=== PATIENT | male | born 1960 | race African-American/Black ===

== ENCOUNTER 2016-12-11 11:46 | Emergency (ER) | payer MEDICAID ==
[~2016-12-11] VITALS: Ht 182.9 cm; Wt 91.0 kg
[~2016-12-11 11:46] MED LIST: ACET-1465 PO; AMLO10TA80 PO; CARV25TA47 PO; CINA30 PO; CLON0.3T PO; FOLI0.8T23 PO; MINO2.5T19 PO; SEVE800T PO
[2016-12-11 12:37] VITALS: BP 90/50
[2016-12-11 13:04] LABS: BASOPHILS % 1.2 % (0.0-2.0); HEMATOCRIT. 36.5 % (42.0-52.0); HEMOGLOBIN. 12.3 g/dL (14.0-18.0); LYMPHOCYTES % 22.7 % (20.0-50.0); MEAN CORPUSCULAR HEMOGLOBIN 30.5 pg (28.0-32.0); MEAN CORPUSCULAR VOLUME 90.6 fL (80.0-94.0); MONOCYTES % 12.3 % (2.0-8.0); NEUTROPHILS % 61.8 % (40.0-76.0); PLATELET 262 x1000/uL (130-400); RED BLOOD CELL COUNT 4.04 mill/uL (4.7-6.1); RED CELL DISTRIBUTION WIDTH 15.8 % (11.6-14.6)
[2016-12-11 13:08] LABS: INR 1.1; PARTIAL THROMBOPLASTIN TIME 30.8 sec (24.0-34.0); PROTHROMBIN TIME 11.6 sec
[2016-12-11 13:10] LABS: CARBON DIOXIDE 31 mEq/L (21-32); CHLORIDE 91 mEq/L (98-107)
[2016-12-11 13:15] LABS: PHOSPHORUS 2.5 mg/dL (2.5-4.9); TOTAL IRON BINDING CAPACITY 160 ug/dL (250-450); TROPONIN I < 0.02 ng/mL (0.00-0.04)
== END 2016-12-11 14:20 | disposition home or self-care (01) ==
LOC: ER 14:16 → CANBEDREQ 14:34
DX: I12.0 Hypertensive chronic kidney disease with stage 5 chronic kidney disease or end stage renal disease (principal); N18.6 End stage renal disease; D64.9 Anemia, unspecified; F12.10 Cannabis abuse, uncomplicated; Z99.2 Dependence on renal dialysis
CPT/HCPCS: 36415; 71010; 80053; 83540; 83550; 83690; 83735; 84100; 84484; 85025; 85044; 85610; 85730; 86850; 86900; 86901; 93005; 99285; Z7610; 86920

== ENCOUNTER 2018-01-08 10:01 | Emergency (ER) | payer MEDICAID ==
[~2018-01-08] VITALS: Ht 182.9 cm; Wt 96.0 kg
[~2018-01-08 10:01] MED LIST changes: +REN800 PO; -SEVE800T PO
[2018-01-08] MEDS ORDERED: LIDOCAINE HCL/PF 1% 10 MG/ML 5ML VIAL IJ ONE (10:45)
[2018-01-08] MEDS ORDERED: ACETAMINOPHEN 500MG TABLET PO ONE (10:45)
[2018-01-08] MEDS ORDERED: ONDANSETRON 4MG ODT PO ONE (11:45)
[2018-01-08] MEDS ORDERED: MORPHINE SULFATE 10 MG/ML CPJ IM ONE (11:45)
[2018-01-08 12:10] VITALS: BP 129/94
== END 2018-01-08 12:17 | disposition home or self-care (01) ==
LOC: ER 10:45
DX: K04.7 Periapical abscess without sinus (principal); N28.9 Disorder of kidney and ureter, unspecified; I10 Essential (primary) hypertension; F12.10 Cannabis abuse, uncomplicated
CPT/HCPCS: 41800; 96372; 99283; J2270; J3490; Q0162; Z7610

== ENCOUNTER 2018-04-25 09:08 | Emergency (ER) | payer MEDICAID ==
[~2018-04-25] VITALS: Ht 182.9 cm; Wt 97.0 kg
[2018-04-25 09:23] VITALS: BP 146/102
== END 2018-04-25 09:50 | disposition left against medical advice (07) ==
LOC: ER 09:08
DX: R68.89 Other general symptoms and signs (principal); Z53.21 Procedure and treatment not carried out due to patient leaving prior to being seen by health care provider

== ENCOUNTER 2018-10-28 09:17 | Emergency (ER) | payer MEDICAID ==
[~2018-10-28] VITALS: Ht 182.9 cm; Wt 100.0 kg
[2018-10-28 09:27] VITALS: BP 160/98
== END 2018-10-28 10:15 | disposition left against medical advice (07) ==
LOC: ER 09:17
DX: T82.41XA Breakdown (mechanical) of vascular dialysis catheter, initial encounter (principal); Y82.8 Other medical devices associated with adverse incidents; Y92.89 Other specified places as the place of occurrence of the external cause; I12.0 Hypertensive chronic kidney disease with stage 5 chronic kidney disease or end stage renal disease; N18.6 End stage renal disease; Z99.2 Dependence on renal dialysis; R62.50 Unspecified lack of expected normal physiological development in childhood; Z79.899 Other long term (current) drug therapy
CPT/HCPCS: 99281

== ENCOUNTER 2018-11-03 18:35 | Inpatient (IN) | payer MEDICAID ==
[~2018-11-03] VITALS: Ht 190.5 cm; Wt 104.4 kg
[2018-11-03 20:14] LABS: BASOPHILS % 0.9 % (0.0-2.0); EOSINOPHILS % 1.7 % (0.0-5.0); HEMATOCRIT. 33.9 % (42.0-52.0); HEMOGLOBIN. 11.4 g/dL (14.0-18.0); LYMPHOCYTES % 9.9 % (20.0-50.0); MEAN CORPUSCULAR HEMOGLOBIN 31.3 pg (28.0-32.0); MEAN CORPUSCULAR VOLUME 93.1 fL (80.0-94.0); MEAN PLATELET VOLUME 6.6 fl (7.4-10.4); MONOCYTES % 7.6 % (2.0-8.0); NEUTROPHILS % 79.9 % (40.0-76.0); PLATELET 215 x1000/uL (130-400); RED BLOOD CELL COUNT 3.64 mill/uL (4.7-6.1); RED CELL DISTRIBUTION WIDTH 14.6 % (11.6-14.6)
[2018-11-03 20:18] LABS: CHLORIDE 95 mEq/L (98-107)
[2018-11-03 20:21] LABS: INR 1.1; PARTIAL THROMBOPLASTIN TIME 36.2 sec (23.4-31.0); PROTHROMBIN TIME 11.3 sec (9.6-11.0)
[2018-11-03] MEDS ORDERED: SODIUM BICARBONATE 8.4% 1 MEQ/ML 50ML SYR IV ONE (21:15)
[2018-11-03] MEDS ORDERED: DEXTROSE 50% WATER 50ML SYRINGE IV ONE (21:15)
[2018-11-03] MEDS ORDERED: SODIUM POLYSTYRENE SULFONATE 15 G/60 ML BOT PO ONE ×2 (21:15→21:45)
[2018-11-03] MEDS ORDERED: ALBUTEROL (0.083%) 2.5MG/3ML NEB HHN ONE (21:15)
[2018-11-03] MEDS ORDERED: INSULIN REGULAR (HUMULIN R) 300UNITS/3ML IV ONE (21:15)
[2018-11-03] MEDS ORDERED: CALCIUM GLUCONATE 1,000 MG in DEXTROSE 5% WATER 50 ML IV ONE (21:15)
[2018-11-03] MEDS ORDERED: DOCUSATE SODIUM 100MG CAPSULE PO PRN (22:45)
[2018-11-03] MEDS ORDERED: IPRATROPIUM/ALBUTEROL 0.5-3(2.5)MG/3ML NEB INH PRN (22:45)
[2018-11-04] VITALS (11 sets, daily range): BP systolic 130–191; BP diastolic 73–123
[2018-11-04] MEDS: ACETAMINOPHEN 325MG TABLET PO PRN ×2 (02:04→20:51)
[2018-11-04] MEDS: CLONIDINE 0.1MG TABLET PO PRN ×2 (02:11→14:13)
[2018-11-04] MEDS: ONDANSETRON HCL 4MG/2ML INJ IV PRN (03:18)
[2018-11-04 08:20] LABS: HEMATOCRIT. 31.7 % (42.0-52.0); HEMOGLOBIN. 10.6 g/dL (14.0-18.0); LYMPHOCYTES % 12.4 % (20.0-50.0); MEAN CORPUSCULAR HEMOGLOBIN 31.3 pg (28.0-32.0); MEAN CORPUSCULAR VOLUME 93.1 fL (80.0-94.0); MEAN PLATELET VOLUME 7.3 fl (7.4-10.4); MONOCYTES % 13.2 % (2.0-8.0); NEUTROPHILS % 71.4 % (40.0-76.0); PLATELET 237 x1000/uL (130-400); RED CELL DISTRIBUTION WIDTH 14.8 % (11.6-14.6)
[2018-11-04] MEDS ORDERED: LIDOCAINE HCL 1% 20ML VIAL (Pyxis) INJ ONE (09:10)
[2018-11-04 09:16] LABS: LDL CHOLESTEROL 55 mg/dL (5-100)
[2018-11-04 09:17] LABS: HDL CHOLESTEROL 34 mg/dL (40-59)
[2018-11-04 09:18] LABS: CREATINE KINASE 275 IU/L (39-308)
[2018-11-04 09:19] LABS: CREATINE KINASE MB FRACTION 2.7 ng/mL (0.5-3.6)
[2018-11-04] MEDS ORDERED: CALCIUM CHLORIDE 1GM/10ML SYR IV NR (09:30)
[2018-11-04] MEDS ORDERED: DEXTROSE 50% WATER 50ML SYRINGE IV NR (09:30)
[2018-11-04] MEDS ORDERED: SODIUM BICARBONATE 8.4% 1 MEQ/ML 50ML SYR IV NR (09:30)
[2018-11-04] MEDS ORDERED: INSULIN REGULAR (HUMULIN R) 300UNITS/3ML IV NR (10:00)
[2018-11-04] MEDS: AMLODIPINE 10MG TABLET PO SCH (17:33)
[2018-11-04] MEDS: CINACALCET HCL 30MG TABLET PO SCH (17:33)
[2018-11-04] MEDS: SEVELAMER CARBONATE 800 MG TABLET PO SCH (17:33)
[2018-11-04 18:02] LABS: CREATINE KINASE 322 IU/L (39-308)
[2018-11-04 18:03] LABS: CREATINE KINASE MB FRACTION 2.5 ng/mL (0.5-3.6)
[2018-11-04] MEDS ORDERED: CALCIUM CHLORIDE 1GM/10ML SYR IV STA (18:29)
[2018-11-04] MEDS ORDERED: SODIUM BICARBONATE 8.4% 1 MEQ/ML 50ML SYR IV STA (18:37)
[2018-11-04] MEDS ORDERED: SODIUM POLYSTYRENE SULFONATE 15 G/60 ML BOT PO STA (18:38)
[2018-11-04] MEDS ORDERED: DEXTROSE 50% WATER 50ML SYRINGE IV STA (18:38)
[2018-11-04] MEDS ORDERED: INSULIN REGULAR (HUMULIN R) UD 100 UNITS/ML SYR IV SCH (19:00)
[2018-11-04] MEDS ORDERED: HYDRALAZINE 20MG/ML VIAL IV ONE (19:00)
[2018-11-04] MEDS ORDERED: SODIUM BICARBONATE 8.4% 1 MEQ/ML 50ML SYR IV SCH (20:00)
[2018-11-04] MEDS: AZITHROMYCIN 500 MG in DEXT 5% WATER 250 ML IV SCH (20:47)
[2018-11-04] MEDS: CARVEDILOL 25MG TABLET PO SCH (20:47)
[2018-11-04] MEDS ORDERED: HYDRALAZINE 20MG/ML VIAL IV NR (21:00)
[2018-11-04] MEDS: HYDRALAZINE HCL 25MG TABLET PO SCH (21:01)
[2018-11-05] VITALS (45 sets, daily range): BP systolic 91–211; BP diastolic 33–111
[2018-11-05] MEDS: ONDANSETRON HCL 4MG/2ML INJ IV PRN (02:59)
[2018-11-05] MEDS: ACETAMINOPHEN 325MG TABLET PO PRN ×3 (04:56→20:04)
[2018-11-05] MEDS: HYDRALAZINE HCL 25MG TABLET PO SCH ×3 (05:05→22:28)
[2018-11-05] MEDS ORDERED: SODIUM BICARBONATE 4% (2.4MEQ) 5ML VIAL IV ONE (08:48)
[2018-11-05] MEDS ORDERED: LIDOCAINE HCL 1% 20ML VIAL (Pyxis) INJ ONE (08:48)
[2018-11-05] MEDS ORDERED: HEPARIN 1000 UNITS/ML 10ML ONE (08:48)
[2018-11-05] MEDS ORDERED: IOHEXOL-300 100 ML BOTTLE ONE ×2 (08:48→10:57)
[2018-11-05] MEDS ORDERED: FENTANYL CITRATE/PF 50MCG/ML 2ML VIAL IV ONE (09:35)
[2018-11-05] MEDS ORDERED: FENTANYL CITRATE/PF 50MCG/ML 2ML VIAL ONE (09:36)
[2018-11-05] MEDS ORDERED: ALTEPLASE 2MG/VIAL ITC NR (10:45)
[2018-11-05] MEDS ORDERED: IOHEXOL-300 50 ML BOTTLE IV ONE (10:57)
[2018-11-05] MEDS ORDERED: ALTEPLASE 2MG/VIAL ITC ONE (11:15)
[2018-11-05] MEDS: AMLODIPINE 10MG TABLET PO SCH (12:32)
[2018-11-05] MEDS: CARVEDILOL 25MG TABLET PO SCH ×2 (12:32→20:04)
[2018-11-05 16:49] LABS: BASOPHILS % 1.3 % (0.0-2.0); EOSINOPHILS % 3.4 % (0.0-5.0); HEMOGLOBIN. 11.1 g/dL (14.0-18.0); LYMPHOCYTES % 11.9 % (20.0-50.0); MEAN CORPUSCULAR VOLUME 91.7 fL (80.0-94.0); MEAN PLATELET VOLUME 7.5 fl (7.4-10.4); MONOCYTES % 5.7 % (2.0-8.0); NEUTROPHILS % 77.7 % (40.0-76.0); PLATELET 222 x1000/uL (130-400); RED BLOOD CELL COUNT 3.59 mill/uL (4.7-6.1); RED CELL DISTRIBUTION WIDTH 14.6 % (11.6-14.6)
[2018-11-05] MEDS: SEVELAMER CARBONATE 800 MG TABLET PO SCH (18:24)
[2018-11-05] MEDS: FOLIC ACID/VITAMIN B COMP W-C TABLET PO SCH (18:24)
[2018-11-05] MEDS: AZITHROMYCIN 500 MG in DEXT 5% WATER 250 ML IV SCH (18:25)
[2018-11-05] MEDS: CINACALCET HCL 30MG TABLET PO SCH (18:25)
[2018-11-05] MEDS: HYDROCODONE/ACETAMINOPHEN 5/325MG TABLET PO PRN (19:10)
[2018-11-06] VITALS (12 sets, daily range): BP systolic 137–187; BP diastolic 56–129
[2018-11-06] MEDS: HYDROCODONE/ACETAMINOPHEN 5/325MG TABLET PO PRN (00:09)
[2018-11-06] MEDS: HYDRALAZINE HCL 25MG TABLET PO SCH ×3 (06:06→21:07)
[2018-11-06] MEDS: ACETAMINOPHEN 325MG TABLET PO PRN ×2 (06:06→15:23)
[2018-11-06 06:58] LABS: EOSINOPHILS % 4.1 % (0.0-5.0); HEMATOCRIT. 31.3 % (42.0-52.0); HEMOGLOBIN. 10.6 g/dL (14.0-18.0); LYMPHOCYTES % 17.2 % (20.0-50.0); MEAN CORPUSCULAR HEMOGLOBIN 31.2 pg (28.0-32.0); MEAN CORPUSCULAR VOLUME 91.9 fL (80.0-94.0); MEAN PLATELET VOLUME 7.1 fl (7.4-10.4); MONOCYTES % 11.3 % (2.0-8.0); NEUTROPHILS % 66.4 % (40.0-76.0); PLATELET 221 x1000/uL (130-400); RED BLOOD CELL COUNT 3.41 mill/uL (4.7-6.1); RED CELL DISTRIBUTION WIDTH 14.7 % (11.6-14.6)
[2018-11-06 07:18] LABS: PHOSPHORUS 7.2 mg/dL (2.5-4.9)
[2018-11-06] MEDS: CARVEDILOL 25MG TABLET PO SCH ×2 (08:56→21:00)
[2018-11-06] MEDS: FOLIC ACID/VITAMIN B COMP W-C TABLET PO SCH (08:56)
[2018-11-06] MEDS: CINACALCET HCL 30MG TABLET PO SCH (08:57)
[2018-11-06] MEDS: AMLODIPINE 10MG TABLET PO SCH (08:57)
[2018-11-06] MEDS: SEVELAMER CARBONATE 800 MG TABLET PO SCH (12:54)
[2018-11-06] MEDS: AZITHROMYCIN 500 MG in DEXT 5% WATER 250 ML IV SCH (18:20)
[2018-11-06] MEDS: CLONIDINE 0.1MG TABLET PO PRN (22:27)
[2018-11-07] MEDS: HYDRALAZINE HCL 25MG TABLET PO SCH (05:22)
[2018-11-07 08:00] VITALS: BP 167/93
[2018-11-07] MEDS: FOLIC ACID/VITAMIN B COMP W-C TABLET PO SCH (08:54)
[2018-11-07] MEDS: SEVELAMER CARBONATE 800 MG TABLET PO SCH (08:54)
[2018-11-07] MEDS: CINACALCET HCL 30MG TABLET PO SCH (08:54)
[2018-11-07] MEDS: AMLODIPINE 10MG TABLET PO SCH (09:00)
[2018-11-07] MEDS: CARVEDILOL 25MG TABLET PO SCH (09:00)
[2018-11-07 09:27] VITALS: BP 152/81
[2018-11-07 10:00] VITALS: BP 152/81
[2018-11-07] MEDS ORDERED: AZITHROMYCIN 500 MG TABLET PO SCH (12:00)
== END 2018-11-07 09:57 | disposition home or self-care (01) | DRG 182 ==
LOC: ER 19:35 → ENRESERV 23:20 → 5EST 11-04 01:31
PROVIDERS: ADMIT Internal Medicine; ATTEND Internal Medicine
PROC: 06JY3ZZ Inspection of Lower Vein, Percutaneous Approach (ICD-10-PCS; 2018-11-04)
PROC: B51N1ZZ Fluoroscopy of Left Upper Extremity Veins using Low Osmolar Contrast (ICD-10-PCS; principal; 2018-11-05)
PROC: 03CY3ZZ Extirpation of Matter from Upper Artery, Percutaneous Approach (ICD-10-PCS; 2018-11-05)
PROC: B5181ZZ Fluoroscopy of Superior Vena Cava using Low Osmolar Contrast (ICD-10-PCS; 2018-11-05)
PROC: 05CY3ZZ Extirpation of Matter from Upper Vein, Percutaneous Approach (ICD-10-PCS; 2018-11-05)
PROC: 037Y3ZZ Dilation of Upper Artery, Percutaneous Approach (ICD-10-PCS; 2018-11-05)
PROC: 057Y3ZZ Dilation of Upper Vein, Percutaneous Approach (ICD-10-PCS; 2018-11-05)
PROC: B51W1ZZ Fluoroscopy of Dialysis Shunt/Fistula using Low Osmolar Contrast (ICD-10-PCS; 2018-11-05)
PROC: 5A1D70Z Performance of Urinary Filtration, Intermittent, Less than 6 Hours Per Day (ICD-10-PCS; 2018-11-05)
PROC: B31J1ZZ Fluoroscopy of Left Upper Extremity Arteries using Low Osmolar Contrast (ICD-10-PCS; 2018-11-05)
PROC: 3E03317 Introduction of Other Thrombolytic into Peripheral Vein, Percutaneous Approach (ICD-10-PCS; 2018-11-05)
PROC: 5A1D70Z Performance of Urinary Filtration, Intermittent, Less than 6 Hours Per Day (ICD-10-PCS; 2018-11-06)
DX: T82.868A Thrombosis due to vascular prosthetic devices, implants and grafts, initial encounter (principal); J18.9 Pneumonia, unspecified organism; I12.0 Hypertensive chronic kidney disease with stage 5 chronic kidney disease or end stage renal disease; E83.41 Hypermagnesemia; E83.51 Hypocalcemia; N18.6 End stage renal disease; E87.5 Hyperkalemia; E78.5 Hyperlipidemia, unspecified; N25.81 Secondary hyperparathyroidism of renal origin; D63.8 Anemia in other chronic diseases classified elsewhere; I73.9 Peripheral vascular disease, unspecified; F99 Mental disorder, not otherwise specified; F12.90 Cannabis use, unspecified, uncomplicated; Y83.2 Surgical operation with anastomosis, bypass or graft as the cause of abnormal reaction of the patient, or of later complication, without mention of misadventure at the time of the procedure; Y92.89 Other specified places as the place of occurrence of the external cause; Z99.2 Dependence on renal dialysis; Z91.15 Patient's noncompliance with renal dialysis; Z79.4 Long term (current) use of insulin; Z79.899 Other long term (current) drug therapy; Z82.49 Family history of ischemic heart disease and other diseases of the circulatory system
CPT/HCPCS: 36415; 36905; 71045; 77001; 80048; 80061; 82550; 82553; 82962; 83735; 84100; 84132; 84484; 93005; 93970; 94644; 96365; 96375; 99152; 99153; 99291; C1725; C1752; C1766; C1769; C2630; J0360; J0456; J0610; J1644; J1815; J2405; J2997; J3010; J3490; J7050; J7060; J7611; Q9967; G0500

== ENCOUNTER 2018-12-26 10:28 | Emergency (ER) | payer MEDICAID ==
[~2018-12-26] VITALS: Ht 172.7 cm; Wt 92.0 kg
[2018-12-26 10:32] VITALS: BP 124/81
== END 2018-12-26 11:05 | disposition left against medical advice (07) ==
LOC: ER 10:28
DX: Z53.21 Procedure and treatment not carried out due to patient leaving prior to being seen by health care provider (principal)

== ENCOUNTER 2018-12-26 12:45 | Emergency (ER) | payer MEDICAID ==
[~2018-12-26] VITALS: Ht 172.7 cm; Wt 92.0 kg
[2018-12-26 13:29] VITALS: BP 120/85
== END 2018-12-26 13:34 | disposition home or self-care (01) ==
LOC: ER 12:45
DX: Z48.02 Encounter for removal of sutures (principal); I12.0 Hypertensive chronic kidney disease with stage 5 chronic kidney disease or end stage renal disease; N18.6 End stage renal disease; Z99.2 Dependence on renal dialysis; Z95.828 Presence of other vascular implants and grafts; Z79.899 Other long term (current) drug therapy
CPT/HCPCS: 99283

== ENCOUNTER 2019-02-14 13:42 | Emergency (ER) | payer MEDICAID ==
[~2019-02-14] VITALS: Ht 182.9 cm; Wt 211.0 kg
[2019-02-14] MEDS ORDERED: CLONIDINE 0.3MG TABLET PO ONE (14:30)
[2019-02-14] MEDS ORDERED: ACETAMINOPHEN 325MG TABLET PO ONE (14:30)
[2019-02-14 15:09] VITALS: BP 140/93
== END 2019-02-14 15:10 | disposition home or self-care (01) ==
LOC: ER 14:02
DX: I12.0 Hypertensive chronic kidney disease with stage 5 chronic kidney disease or end stage renal disease (principal); N18.6 End stage renal disease; Z99.2 Dependence on renal dialysis
CPT/HCPCS: 99283

== ENCOUNTER 2019-02-17 05:40 | Inpatient (IN) | payer MEDICAID ==
[~2019-02-17] VITALS: Ht 182.9 cm; Wt 97.1 kg
[2019-02-17 07:41] LABS: BASOPHILS % 1.2 % (0.0-2.0); EOSINOPHILS % 3.2 % (0.0-5.0); HEMATOCRIT. 37.3 % (42.0-52.0); HEMOGLOBIN. 12.1 g/dL (14.0-18.0); LYMPHOCYTES % 13.7 % (20.0-50.0); MEAN CORPUSCULAR HEMOGLOBIN 30.5 pg (28.0-32.0); MEAN CORPUSCULAR VOLUME 94.2 fL (80.0-94.0); MEAN PLATELET VOLUME 7.4 fl (7.4-10.4); MONOCYTES % 10.1 % (2.0-8.0); NEUTROPHILS % 71.8 % (40.0-76.0); PLATELET 213 x1000/uL (130-400); RED BLOOD CELL COUNT 3.96 mill/uL (4.7-6.1); RED CELL DISTRIBUTION WIDTH 16.2 % (11.6-14.6)
[2019-02-17 07:43] LABS: CHLORIDE 101 mEq/L (98-107)
[2019-02-17 07:45] LABS: PARTIAL THROMBOPLASTIN TIME 32.2 sec (23.4-31.0); PROTHROMBIN TIME 10.7 sec (9.6-11.0)
[2019-02-17] MEDS ORDERED: SODIUM POLYSTYRENE SULFONATE 15 G/60 ML BOT PO ONE (08:00)
[2019-02-17] MEDS ORDERED: DEXTROSE 50% WATER 50ML SYRINGE IV ONE ×4 (08:00→17:00)
[2019-02-17] MEDS ORDERED: CALCIUM GLUCONATE 100MG/ML 10ML VIAL IV ONE ×2 (08:00→17:00)
[2019-02-17] MEDS ORDERED: SODIUM BICARBONATE 8.4% 1 MEQ/ML 50ML SYR IV ONE (08:00)
[2019-02-17] MEDS ORDERED: ALBUTEROL (0.083%) 2.5MG/3ML NEB HHN ONE (08:00)
[2019-02-17] MEDS ORDERED: INSULIN REGULAR (HUMULIN R) 300UNITS/3ML IV ONE (08:00)
[2019-02-17] MEDS ORDERED: CLONIDINE 0.2MG TABLET PO ONE (08:00)
[2019-02-17 11:30] VITALS: BP 155/94
[2019-02-17] MEDS ORDERED: DOCUSATE SODIUM 100MG CAPSULE PO PRN (13:00)
[2019-02-17] MEDS ORDERED: DIPHENHYDRAMINE 50MG/ML VIAL IV PRN (13:00)
[2019-02-17] MEDS ORDERED: CLONIDINE 0.3MG TABLET PO SCH (13:00)
[2019-02-17] MEDS ORDERED: CLONIDINE 0.1MG TABLET PO PRN (13:00)
[2019-02-17] MEDS ORDERED: ONDANSETRON HCL 4MG/2ML INJ IV PRN (13:00)
[2019-02-17] MEDS: AMLODIPINE 10MG TABLET PO SCH (14:31)
[2019-02-17] MEDS: FOLIC ACID/VITAMIN B COMP W-C TABLET PO SCH (14:32)
[2019-02-17] MEDS ORDERED: ALBUTEROL (0.083%) 2.5MG/3ML NEB HHN NR (15:00)
[2019-02-17] MEDS ORDERED: INFLUENZA VIRUS VACCINE(AFLURIA) 0.5ML SYR IM ONE (15:30)
[2019-02-17 16:00] VITALS: BP 132/82
[2019-02-17] MEDS ORDERED: CALCIUM GLUCONATE 100MG/ML 10ML VIAL IV NR (16:00)
[2019-02-17] MEDS ORDERED: DEXTROSE 50% WATER 50ML SYRINGE IV NR (16:00)
[2019-02-17] MEDS ORDERED: INSULIN REGULAR (HUMULIN R) UD 100 UNITS/ML SYR IV NR (16:00)
[2019-02-17] MEDS ORDERED: CINACALCET HCL 30MG TABLET PO SCH (17:00)
[2019-02-17] MEDS ORDERED: INSULIN REGULAR (HUMULIN R) UD 100 UNITS/ML SYR IV ONE (17:00)
[2019-02-17] MEDS: CINACALCET HCL 30MG TABLET PO SCH (17:54)
[2019-02-17] MEDS: SEVELAMER CARBONATE 800 MG TABLET PO SCH (17:54)
[2019-02-17] MEDS ORDERED: SODIUM POLYSTYRENE SULFONATE 15 G/60 ML BOT PR NR (18:30)
[2019-02-17] MEDS: CLONIDINE 0.2MG TABLET PO SCH ×2 (18:51→21:14)
[2019-02-17 20:00] VITALS: BP 149/99
[2019-02-17] MEDS: CARVEDILOL 12.5MG TABLET PO SCH (21:00)
[2019-02-17] MEDS: MINOXIDIL 2.5MG TABLET PO SCH (21:00)
[2019-02-17] MEDS: IPRATROPIUM/ALBUTEROL 0.5-3(2.5)MG/3ML NEB HHN PRN (22:35)
[2019-02-18] VITALS: BP 147/80
[2019-02-18] MEDS: ACETAMINOPHEN 325MG TABLET PO PRN ×2 (01:35→21:32)
[2019-02-18] MEDS: CLONIDINE 0.2MG TABLET PO SCH ×3 (05:54→21:29)
[2019-02-18 06:00] VITALS: BP 155/88
[2019-02-18 06:56] LABS: BASOPHILS % 0.7 % (0.0-2.0); EOSINOPHILS % 2.5 % (0.0-5.0); HEMATOCRIT. 34.5 % (42.0-52.0); HEMOGLOBIN. 11.4 g/dL (14.0-18.0); MEAN CORPUSCULAR HEMOGLOBIN 30.7 pg (28.0-32.0); MEAN CORPUSCULAR VOLUME 93.1 fL (80.0-94.0); MEAN PLATELET VOLUME 7.3 fl (7.4-10.4); NEUTROPHILS % 69.8 % (40.0-76.0); PLATELET 199 x1000/uL (130-400); RED CELL DISTRIBUTION WIDTH 15.8 % (11.6-14.6)
[2019-02-18] MEDS: FOLIC ACID/VITAMIN B COMP W-C TABLET PO SCH (08:30)
[2019-02-18] MEDS: SEVELAMER CARBONATE 800 MG TABLET PO SCH ×3 (08:30→17:11)
[2019-02-18] MEDS: AMLODIPINE 10MG TABLET PO SCH (08:30)
[2019-02-18] MEDS: CARVEDILOL 12.5MG TABLET PO SCH ×2 (08:30→21:29)
[2019-02-18] MEDS: IPRATROPIUM/ALBUTEROL 0.5-3(2.5)MG/3ML NEB HHN PRN ×4 (08:32→20:43)
[2019-02-18 08:36] VITALS: BP 139/85
[2019-02-18 12:05] VITALS: BP 144/77
[2019-02-18 16:15] VITALS: BP 146/86
[2019-02-18] MEDS: CINACALCET HCL 30MG TABLET PO SCH (17:11)
[2019-02-18 20:00] VITALS: BP 167/99
[2019-02-18] MEDS: MINOXIDIL 2.5MG TABLET PO SCH (21:29)
[2019-02-19] VITALS: BP 146/83
[2019-02-19] MEDS: IPRATROPIUM/ALBUTEROL 0.5-3(2.5)MG/3ML NEB HHN PRN ×3 (00:05→23:51)
[2019-02-19 04:00] VITALS: BP 146/93
[2019-02-19] MEDS: CLONIDINE 0.2MG TABLET PO SCH ×5 (05:56→22:46)
[2019-02-19] MEDS ORDERED: ALTEPLASE 2MG/VIAL ITC ONE (07:30)
[2019-02-19] MEDS: SEVELAMER CARBONATE 800 MG TABLET PO SCH ×3 (07:40→17:33)
[2019-02-19 08:00] VITALS: BP 143/84
[2019-02-19] MEDS: ACETAMINOPHEN 325MG TABLET PO PRN ×2 (08:43→21:40)
[2019-02-19] MEDS: CARVEDILOL 12.5MG TABLET PO SCH ×2 (08:51→22:47)
[2019-02-19] MEDS: FOLIC ACID/VITAMIN B COMP W-C TABLET PO SCH (08:51)
[2019-02-19] MEDS: AMLODIPINE 10MG TABLET PO SCH (08:52)
[2019-02-19] MEDS ORDERED: IOHEXOL-300 100 ML BOTTLE ONE (10:07)
[2019-02-19] MEDS ORDERED: HEPARIN 1,000 UNITS PREMIX 0 ML IV ONE (10:07)
[2019-02-19] MEDS ORDERED: SODIUM BICARBONATE 4% (2.4MEQ) 5ML VIAL IV ONE (10:07)
[2019-02-19] MEDS ORDERED: LIDOCAINE HCL 1% 20ML VIAL (Pyxis) INJ ONE (10:08)
[2019-02-19] MEDS ORDERED: SODIUM POLYSTYRENE SULFONATE 15 G/60 ML BOT PO SCH (11:30)
[2019-02-19] MEDS ORDERED: DEXTROSE 50% WATER 50ML SYRINGE IV SCH (11:30)
[2019-02-19] MEDS ORDERED: INSULIN REGULAR (HUMULIN R) UD 100 UNITS/ML SYR IV SCH (11:30)
[2019-02-19 12:00] VITALS: BP 139/82
[2019-02-19] MEDS: HYDROCODONE/ACETAMINOPHEN 5/325MG TABLET PO PRN (12:28)
[2019-02-19 16:00] VITALS: BP 149/80
[2019-02-19] MEDS: CINACALCET HCL 30MG TABLET PO SCH (17:33)
[2019-02-19 20:00] VITALS: BP 166/101
[2019-02-19] MEDS: MINOXIDIL 2.5MG TABLET PO SCH (22:47)
[2019-02-20] VITALS (22 sets, daily range): BP systolic 116–215; BP diastolic 75–137
[2019-02-20] MEDS: CLONIDINE 0.2MG TABLET PO SCH ×3 (05:56→22:11)
[2019-02-20] MEDS: SEVELAMER CARBONATE 800 MG TABLET PO SCH ×3 (07:40→17:25)
[2019-02-20] MEDS ORDERED: CALCIUM GLUCONATE 100MG/ML 10ML VIAL IV ONE (08:45)
[2019-02-20] MEDS ORDERED: CALCIUM GLUCONATE 1,000 MG in SODIUM CHLORIDE 0.9% 50 ML IV SCH (08:45)
[2019-02-20] MEDS ORDERED: DEXTROSE 50% WATER 50ML SYRINGE IV SCH (08:45)
[2019-02-20] MEDS ORDERED: SODIUM POLYSTYRENE SULFONATE 15 G/60 ML BOT PO SCH (09:00)
[2019-02-20] MEDS ORDERED: INSULIN REGULAR (HUMULIN R) 300UNITS/3ML IV SCH (09:00)
[2019-02-20] MEDS: AMLODIPINE 10MG TABLET PO SCH (09:00)
[2019-02-20] MEDS ORDERED: CALCIUM GLUCONATE 1000 MG in DEXTROSE 5% WATER 100 ML IV NR (09:00)
[2019-02-20] MEDS: CARVEDILOL 12.5MG TABLET PO SCH ×2 (09:00→22:10)
[2019-02-20] MEDS: FOLIC ACID/VITAMIN B COMP W-C TABLET PO SCH (09:00)
[2019-02-20] MEDS ORDERED: ALTEPLASE 2MG/VIAL ITC SCH (10:00)
[2019-02-20] MEDS ORDERED: IOHEXOL-300 100 ML BOTTLE ONE (12:36)
[2019-02-20] MEDS ORDERED: SODIUM BICARBONATE 4% (2.4MEQ) 5ML VIAL IV ONE (12:36)
[2019-02-20] MEDS ORDERED: LIDOCAINE HCL 1% 20ML VIAL (Pyxis) INJ ONE (12:37)
[2019-02-20] MEDS ORDERED: CEFAZOLIN 1000MG PREMIX 50 ML IV SCH (12:45)
[2019-02-20] MEDS ORDERED: CEFAZOLIN 1000MG PREMIX 50 ML IV ONE (12:49)
[2019-02-20] MEDS ORDERED: FENTANYL CITRATE/PF 50MCG/ML 2ML VIAL ONE (12:49)
[2019-02-20] MEDS ORDERED: ALTEPLASE 2MG/VIAL ITC ONE (13:15)
[2019-02-20] MEDS ORDERED: HEPARIN 1000 UNITS/ML 10ML ONE (13:37)
[2019-02-20] MEDS ORDERED: HEPARIN 5000 UNITS/ML VIAL IV NR (14:15)
[2019-02-20] MEDS ORDERED: FENTANYL CITRATE/PF 50MCG/ML 2ML VIAL IV NR (14:15)
[2019-02-20] MEDS: CINACALCET HCL 30MG TABLET PO SCH (17:25)
[2019-02-20] MEDS: MINOXIDIL 2.5MG TABLET PO SCH (22:10)
[2019-02-20] MEDS: HYDROCODONE/ACETAMINOPHEN 5/325MG TABLET PO PRN (22:11)
[2019-02-20] MEDS: IPRATROPIUM/ALBUTEROL 0.5-3(2.5)MG/3ML NEB HHN PRN (22:34)
[2019-02-21] VITALS (8 sets, daily range): BP systolic 117–152; BP diastolic 60–84
[2019-02-21] MEDS: CLONIDINE 0.2MG TABLET PO SCH ×2 (06:00→14:00)
[2019-02-21] MEDS: HYDROCODONE/ACETAMINOPHEN 5/325MG TABLET PO PRN (06:14)
[2019-02-21] MEDS: SEVELAMER CARBONATE 800 MG TABLET PO SCH ×3 (10:16→17:40)
[2019-02-21] MEDS: CARVEDILOL 12.5MG TABLET PO SCH ×2 (10:17→21:29)
[2019-02-21] MEDS: FOLIC ACID/VITAMIN B COMP W-C TABLET PO SCH (10:17)
[2019-02-21] MEDS: AMLODIPINE 10MG TABLET PO SCH (10:18)
[2019-02-21] MEDS: IPRATROPIUM/ALBUTEROL 0.5-3(2.5)MG/3ML NEB HHN PRN (12:11)
[2019-02-21] MEDS: CINACALCET HCL 30MG TABLET PO SCH (17:00)
[2019-02-21] MEDS: ACETAMINOPHEN 325MG TABLET PO PRN (19:41)
[2019-02-21] MEDS: MINOXIDIL 2.5MG TABLET PO SCH (21:30)
== END 2019-02-21 21:30 | disposition home or self-care (01) | DRG 182 ==
LOC: ER 05:40 → 8WST 08:39 → ENRESERV 10:45
PROVIDERS: ADMIT Internal Medicine; ATTEND Internal Medicine
PROC: 5A1D70Z Performance of Urinary Filtration, Intermittent, Less than 6 Hours Per Day (ICD-10-PCS; 2019-02-18)
PROC: 5A1D70Z Performance of Urinary Filtration, Intermittent, Less than 6 Hours Per Day (ICD-10-PCS; 2019-02-19)
PROC: B51W1ZZ Fluoroscopy of Dialysis Shunt/Fistula using Low Osmolar Contrast (ICD-10-PCS; principal; 2019-02-20)
PROC: 057Y3ZZ Dilation of Upper Vein, Percutaneous Approach (ICD-10-PCS; 2019-02-20)
PROC: 037Y3ZZ Dilation of Upper Artery, Percutaneous Approach (ICD-10-PCS; 2019-02-20)
PROC: 3E03317 Introduction of Other Thrombolytic into Peripheral Vein, Percutaneous Approach (ICD-10-PCS; 2019-02-20)
PROC: 5A1D70Z Performance of Urinary Filtration, Intermittent, Less than 6 Hours Per Day (ICD-10-PCS; 2019-02-21)
DX: T82.858A Stenosis of other vascular prosthetic devices, implants and grafts, initial encounter (principal); I12.0 Hypertensive chronic kidney disease with stage 5 chronic kidney disease or end stage renal disease; E87.1 Hypo-osmolality and hyponatremia; N18.6 End stage renal disease; E87.5 Hyperkalemia; D53.9 Nutritional anemia, unspecified; E87.70 Fluid overload, unspecified; I49.3 Ventricular premature depolarization; R00.8 Other abnormalities of heart beat; R00.0 Tachycardia, unspecified; D72.819 Decreased white blood cell count, unspecified; R60.0 Localized edema; I87.1 Compression of vein; E16.2 Hypoglycemia, unspecified; F29 Unspecified psychosis not due to a substance or known physiological condition; Y82.8 Other medical devices associated with adverse incidents; Y92.89 Other specified places as the place of occurrence of the external cause; Z99.2 Dependence on renal dialysis
CPT/HCPCS: 36415; 36905; 76937; 80048; 82962; 84132; 86850; 86900; 90686; 93005; 94640; 94644; 96365; 99152; 99153; 99285; C1725; C1766; C1769; J0610; J0690; J1644; J1815; J2997; J3010; J3490; J7060; J7611; J7620; Q9967; G0500

== ENCOUNTER 2019-09-29 06:37 | Inpatient (IN) | payer MEDICAID ==
[~2019-09-29] VITALS: Ht 182.9 cm; Wt 102.1 kg
[2019-09-29 08:00] LABS: BASOPHILS % 1.2 % (0.0-2.0); EOSINOPHILS % 3.7 % (0.0-5.0); HEMATOCRIT. 35.7 % (42.0-52.0); HEMOGLOBIN. 12.1 g/dL (14.0-18.0); MEAN CORPUSCULAR HEMOGLOBIN 31.3 pg (28.0-32.0); MEAN CORPUSCULAR VOLUME 92.6 fL (80.0-94.0); MEAN PLATELET VOLUME 7.3 fl (7.4-10.4); MONOCYTES % 13.4 % (2.0-8.0); NEUTROPHILS % 62.7 % (40.0-76.0); PLATELET 217 x1000/uL (130-400); RED BLOOD CELL COUNT 3.86 mill/uL (4.7-6.1); RED CELL DISTRIBUTION WIDTH 15.4 % (11.6-14.6)
[2019-09-29 08:08] LABS: CHLORIDE 92 mEq/L (98-107)
[2019-09-29 08:15] LABS: PARTIAL THROMBOPLASTIN TIME 29.6 sec (23.4-31.0); PROTHROMBIN TIME 11.1 sec (9.6-11.0)
[2019-09-29] MEDS: AMLODIPINE 5MG TABLET PO SCH ×2 (13:11→21:23)
[2019-09-29] MEDS: ONDANSETRON HCL 4MG/2ML INJ IV PRN ×2 (13:12→13:29)
[2019-09-29] MEDS: ACETAMINOPHEN 325MG TABLET PO PRN ×2 (13:12→21:33)
[2019-09-29 16:59] VITALS: BP 157/97
[2019-09-29] MEDS: LOSARTAN POTASSIUM 100 MG TABLET PO SCH (18:40)
[2019-09-29 20:00] VITALS: BP 139/86
[2019-09-30] VITALS: BP 159/100
[2019-09-30 04:00] VITALS: BP 154/97
[2019-09-30 06:11] LABS: BASOPHILS % 1.3 % (0.0-2.0); EOSINOPHILS % 3.8 % (0.0-5.0); HEMATOCRIT. 33.1 % (42.0-52.0); HEMOGLOBIN. 11.2 g/dL (14.0-18.0); LYMPHOCYTES % 19.3 % (20.0-50.0); MEAN CORPUSCULAR HEMOGLOBIN 31.3 pg (28.0-32.0); MEAN CORPUSCULAR VOLUME 92.4 fL (80.0-94.0); MEAN PLATELET VOLUME 7.3 fl (7.4-10.4); MONOCYTES % 12.5 % (2.0-8.0); NEUTROPHILS % 63.1 % (40.0-76.0); PLATELET 219 x1000/uL (130-400); RED BLOOD CELL COUNT 3.59 mill/uL (4.7-6.1); RED CELL DISTRIBUTION WIDTH 15.3 % (11.6-14.6)
[2019-09-30 08:00] VITALS: BP 165/95
[2019-09-30] MEDS: AMLODIPINE 5MG TABLET PO SCH ×2 (08:26→21:47)
[2019-09-30] MEDS: LOSARTAN POTASSIUM 100 MG TABLET PO SCH (08:26)
[2019-09-30 12:00] VITALS: BP 159/98
[2019-09-30 16:00] VITALS: BP 177/87
[2019-09-30] MEDS: CLONIDINE 0.1MG TABLET PO PRN (16:50)
[2019-09-30 20:00] VITALS: BP 143/87
[2019-09-30] MEDS: HYDRALAZINE HCL 50MG TABLET PO SCH (21:47)
[2019-10-01] VITALS (23 sets, daily range): BP systolic 137–182; BP diastolic 67–108
[2019-10-01 06:46] LABS: BASOPHILS % 1.1 % (0.0-2.0); HEMATOCRIT. 32.3 % (42.0-52.0); HEMOGLOBIN. 10.7 g/dL (14.0-18.0); MEAN CORPUSCULAR HEMOGLOBIN 30.8 pg (28.0-32.0); MEAN CORPUSCULAR VOLUME 92.6 fL (80.0-94.0); MEAN PLATELET VOLUME 7.2 fl (7.4-10.4); MONOCYTES % 14.8 % (2.0-8.0); NEUTROPHILS % 61.1 % (40.0-76.0); PLATELET 204 x1000/uL (130-400); RED BLOOD CELL COUNT 3.48 mill/uL (4.7-6.1); RED CELL DISTRIBUTION WIDTH 15.1 % (11.6-14.6)
[2019-10-01] MEDS ORDERED: CEFAZOLIN 1000MG PREMIX 50 ML IV ONE ×2 (09:30→11:20)
[2019-10-01] MEDS ORDERED: ALTEPLASE 2MG/VIAL ITC NR (09:45)
[2019-10-01] MEDS ORDERED: IOHEXOL-300 100 ML BOTTLE ONE (11:14)
[2019-10-01] MEDS ORDERED: LIDOCAINE HCL 1% 20ML VIAL (Pyxis) INJ ONE (11:14)
[2019-10-01] MEDS ORDERED: SODIUM BICARBONATE 4% (2.4MEQ) 5ML VIAL IV ONE (11:14)
[2019-10-01] MEDS ORDERED: FENTANYL CITRATE/PF 50MCG/ML 2ML VIAL IV NR (11:20)
[2019-10-01] MEDS ORDERED: FENTANYL CITRATE/PF 50MCG/ML 2ML VIAL ONE (11:20)
[2019-10-01] MEDS ORDERED: IOHEXOL-300 50 ML BOTTLE IV ONE (12:48)
[2019-10-01] MEDS: AMLODIPINE 5MG TABLET PO SCH ×2 (13:20→21:00)
[2019-10-01] MEDS: LOSARTAN POTASSIUM 100 MG TABLET PO SCH (13:21)
[2019-10-01] MEDS: HYDRALAZINE HCL 50MG TABLET PO SCH ×2 (13:21→21:00)
[2019-10-01] MEDS: ACETAMINOPHEN 325MG TABLET PO PRN (21:55)
[2019-10-02] VITALS: BP 160/97
[2019-10-02 04:00] VITALS: BP 157/91
[2019-10-02] MEDS: ACETAMINOPHEN 325MG TABLET PO PRN ×3 (04:43→20:51)
[2019-10-02 06:47] LABS: BASOPHILS % 0.9 % (0.0-2.0); EOSINOPHILS % 2.7 % (0.0-5.0); HEMATOCRIT. 32.7 % (42.0-52.0); HEMOGLOBIN. 11.3 g/dL (14.0-18.0); LYMPHOCYTES % 15.1 % (20.0-50.0); MEAN CORPUSCULAR HEMOGLOBIN 31.5 pg (28.0-32.0); MEAN CORPUSCULAR VOLUME 91.4 fL (80.0-94.0); MEAN PLATELET VOLUME 7.1 fl (7.4-10.4); NEUTROPHILS % 68.3 % (40.0-76.0); PLATELET 194 x1000/uL (130-400); RED BLOOD CELL COUNT 3.58 mill/uL (4.7-6.1); RED CELL DISTRIBUTION WIDTH 15.4 % (11.6-14.6)
[2019-10-02 08:34] VITALS: BP 145/83
[2019-10-02 11:58] VITALS: BP 136/84
[2019-10-02] MEDS: AMLODIPINE 5MG TABLET PO SCH ×2 (13:23→20:50)
[2019-10-02] MEDS: HYDRALAZINE HCL 50MG TABLET PO SCH ×2 (13:23→20:50)
[2019-10-02] MEDS: LOSARTAN POTASSIUM 100 MG TABLET PO SCH (13:23)
[2019-10-02 16:29] VITALS: BP 155/91
[2019-10-02 20:00] VITALS: BP 158/98
[2019-10-03] VITALS (7 sets, daily range): BP systolic 143–166; BP diastolic 78–88
[2019-10-03] MEDS: ACETAMINOPHEN 325MG TABLET PO PRN ×2 (06:44→20:41)
[2019-10-03 07:04] LABS: BASOPHILS % 0.6 % (0.0-2.0); EOSINOPHILS % 3.4 % (0.0-5.0); HEMATOCRIT. 32.1 % (42.0-52.0); HEMOGLOBIN. 10.8 g/dL (14.0-18.0); LYMPHOCYTES % 10.7 % (20.0-50.0); MEAN CORPUSCULAR HEMOGLOBIN 30.9 pg (28.0-32.0); MEAN PLATELET VOLUME 7.2 fl (7.4-10.4); MONOCYTES % 10.4 % (2.0-8.0); NEUTROPHILS % 74.9 % (40.0-76.0); PLATELET 191 x1000/uL (130-400); RED BLOOD CELL COUNT 3.49 mill/uL (4.7-6.1); RED CELL DISTRIBUTION WIDTH 15.1 % (11.6-14.6)
[2019-10-03] MEDS: LOSARTAN POTASSIUM 100 MG TABLET PO SCH (09:05)
[2019-10-03] MEDS: HYDRALAZINE HCL 50MG TABLET PO SCH ×2 (09:05→20:48)
[2019-10-03] MEDS: AMLODIPINE 5MG TABLET PO SCH ×2 (09:06→20:48)
[2019-10-03] MEDS ORDERED: LOSA100T3 PO (13:13)
[2019-10-03] MEDS ORDERED: AMLO5TAB88 PO (13:13)
[2019-10-03] MEDS ORDERED: HYDR-4135 PO (13:13)
[2019-10-04] MEDS: CLONIDINE 0.1MG TABLET PO PRN (00:30)
[2019-10-04 00:53] VITALS: BP 175/99
[2019-10-04 04:00] VITALS: BP 147/82
[2019-10-04 08:23] VITALS: BP 150/84
[2019-10-04] MEDS ORDERED: HYDROCODONE/ACETAMINOPHEN 5/325MG TABLET PO PRN (08:30)
[2019-10-04] MEDS: HYDRALAZINE HCL 50MG TABLET PO SCH (08:33)
[2019-10-04] MEDS: AMLODIPINE 5MG TABLET PO SCH (08:33)
[2019-10-04] MEDS: LOSARTAN POTASSIUM 100 MG TABLET PO SCH (08:33)
[2019-10-04 12:01] VITALS: BP 138/74
== END 2019-10-04 19:00 | disposition home or self-care (01) | DRG 182 ==
LOC: ER 06:37 → EDBEDREQ 07:37 → 6WST 09:54 → EDBEDREQ 10:05 → ENRESERV 14:46
PROVIDERS: ADMIT Internal Medicine; ATTEND Internal Medicine
PROC: 03CY3ZZ Extirpation of Matter from Upper Artery, Percutaneous Approach (ICD-10-PCS; 2019-09-29)
PROC: 05CY3ZZ Extirpation of Matter from Upper Vein, Percutaneous Approach (ICD-10-PCS; 2019-09-29)
PROC: 5A1D70Z Performance of Urinary Filtration, Intermittent, Less than 6 Hours Per Day (ICD-10-PCS; principal; 2019-09-30)
PROC: 03WY3JZ Revision of Synthetic Substitute in Upper Artery, Percutaneous Approach (ICD-10-PCS; 2019-10-01)
PROC: B51W1ZZ Fluoroscopy of Dialysis Shunt/Fistula using Low Osmolar Contrast (ICD-10-PCS; 2019-10-01)
PROC: B5181ZZ Fluoroscopy of Superior Vena Cava using Low Osmolar Contrast (ICD-10-PCS; 2019-10-01)
PROC: 05WY3JZ Revision of Synthetic Substitute in Upper Vein, Percutaneous Approach (ICD-10-PCS; 2019-10-01)
PROC: 5A1D70Z Performance of Urinary Filtration, Intermittent, Less than 6 Hours Per Day (ICD-10-PCS; 2019-10-02)
PROC: 5A1D70Z Performance of Urinary Filtration, Intermittent, Less than 6 Hours Per Day (ICD-10-PCS; 2019-10-04)
DX: T82.41XA Breakdown (mechanical) of vascular dialysis catheter, initial encounter (principal); I12.0 Hypertensive chronic kidney disease with stage 5 chronic kidney disease or end stage renal disease; E87.1 Hypo-osmolality and hyponatremia; E87.8 Other disorders of electrolyte and fluid balance, not elsewhere classified; N18.6 End stage renal disease; D63.8 Anemia in other chronic diseases classified elsewhere; D72.819 Decreased white blood cell count, unspecified; Y71.2 Prosthetic and other implants, materials and accessory cardiovascular devices associated with adverse incidents; Z99.2 Dependence on renal dialysis; Y92.89 Other specified places as the place of occurrence of the external cause; Z03.818 Encounter for observation for suspected exposure to other biological agents ruled out
CPT/HCPCS: 36415; 36905; 71045; 76937; 80048; 80053; 83735; 84100; 85025; 93005; 99152; 99153; 99285; C1725; C1766; C1769; C1887; C2630; J0690; J1644; J2405; J2997; J3010; J3490; Q9967; G0500; U0003-CS